=== PATIENT | female | born 1965 | race Two or more races ===

== ENCOUNTER 2017-12-02 19:24 | Emergency (ER) | payer OTHER ==
[~2017-12-02] VITALS: Ht 165.1 cm; Wt 97.5 kg
[2017-12-02] MEDS ORDERED: HYZAAR 100-251 EACH (20:02)
[2017-12-02] MEDS ORDERED: SYNTHROID50 MCG (20:02)
== END 2017-12-02 21:34 | disposition home or self-care (01) ==
LOC: ER 19:24
DX: S90.01XA Contusion of right ankle, initial encounter (principal); W18.39XA Other fall on same level, initial encounter; Y93.89 Activity, other specified; Y92.481 Parking lot as the place of occurrence of the external cause; Y99.8 Other external cause status